=== PATIENT | female | born 1950 | race Caucasian/White ===

== ENCOUNTER 2021-01-24 17:24 | Emergency (ER) | payer MEDICARE, OTHER ==
[~2021-01-24] VITALS: Ht 167.6 cm; Wt 90.7 kg
[2021-01-24] MEDS ORDERED: TETANUS-DIPTH-ACEL PERTUSSIS 0.5ML SYR Tdap IM ONE (22:15)
[2021-01-24] MEDS ORDERED: cefTRIAXone SOD 1,000 MG VL IM ONE (22:15)
[2021-01-24 23:50] VITALS: BP 128/63
[2021-01-25] MEDS ORDERED: BACITRACIN TOP OINT 1 UD PKG TOP ONE
== END 2021-01-24 23:57 | disposition home or self-care (01) ==
LOC: ER 17:27
DX: S61.216A Laceration without foreign body of right little finger without damage to nail, initial encounter (principal); I10 Essential (primary) hypertension; Z88.2 Allergy status to sulfonamides; W54.0XXA Bitten by dog, initial encounter; Y93.89 Activity, other specified; Y92.89 Other specified places as the place of occurrence of the external cause; Y99.8 Other external cause status
CPT/HCPCS: 12001; 73140; 90471; 90715; 96372; 99284; J0696

== ENCOUNTER 2024-10-20 12:12 | Emergency (ER) | payer MEDICARE, OTHER ==
[~2024-10-20] VITALS: Ht 167.6 cm; Wt 86.6 kg
--- NOTE | 2024-10-20 13:30 | DVH ---
EXAM: CT HEAD WITHOUT CONTRAST INDICATION: trauma TECHNIQUE: CT of the head without intravenous contrast. Coronal and sagittal reformatted images are s ubmitted. Radiation Dose : 1. Head: CT Dose: CTDI volume is 18.9 mGy. Dose-length product is 502.3 mGy*cm The dose indicators for CT are the volume Computed Tomography (CT) Dose Index (CTDIvol) and the Dose Length Product (DLP), and are measured in units of mGy and mGy-cm, respectively. These indicators are not patient dose, but values generated from the CT scanner acquisition factors. The report includes radiation exposure data for exposures received during this examination. All CT scans at this medical facility are performed using dose modulation techniques as appropriate to a performed exam including the following: Automated exposure control was utilized; adjustment of the MA and/or KV according to patient size; and use of iterative reconstruction technique. COMPARISON: None FINDINGS: There is no evidence of acute intracranial hemorrhage, extra-axial collection, mass effect, midline s hift, herniation or hydrocephalus. The ventricles, sulci and cisterns are age appropriate. The tapia-white differentiation is intact. There is mucosal thickening in the right maxillary sinus mastoid air cells are clear. No depressed calvarial fracture. The surrounding soft tissues are unremarkable. IMPRESSION: 1. No evidence of acute intracranial abnormality.
[2024-10-20 13:37] LABS: Basophils # (auto) 0.1 10 ^3/uL (0-0.2); Basophils % (auto) 1.1 % (0.0-2.0); Eosinophils # (auto) 0.4 10 ^3/uL (0-0.8); Eosinophils % (auto) 6.6 % (0.0-7.0); Hematocrit 40.6 % (36.0-46.0); Hemoglobin 13.7 g/dL (12.2-16.2); Lymphocytes # (auto) 1.5 10 ^3/uL (0.4-5.4); Mean Corpuscular Hgb Conc. 33.9 g/dL (32.0-36.0); Mean Corpuscular Volume 97.5 fL (80.0-100.0); Monocytes # (auto) 0.7 10 ^3/uL (0-1.3); Monocytes % (auto) 11.7 % (0.0-12.0); Neutrophils # (auto) 3.1 10 ^3/uL (1.6-8.6); Neutrophils % (auto) 54.6 % (37.0-80.0); Nucleated Red Blood Cells % 0.1 %; Platelet Count (auto) 156 10^3/uL (140-450); Red Blood Cells 4.16 10^6/uL (4.0-5.20); White Blood Cell 5.7 10^3/uL (4.4-10.8)
[2024-10-20 13:48] LABS: Chloride 107 mmol/L (98-107); Sodium 142 mmol/L (136-145)
--- NOTE | 2024-10-20 13:48 | DVH ---
EXAM: CT CERVICAL WITHOUT CONTRAST INDICATION: trauma EXAM DATE: 10/20/2024 01:04 PM COMPARISON: None TECHNIQUE: Multiple axial CT images of the cervical spine were obtained using bone algorithm. Sagitta l and coronal reformatting was done. Bone and soft tissue windows were reviewed. Radiation Dose Information: CT Dose: CTDI volume is 18.8 mGy. Dose-length product is 502.3 mGy*cm FINDINGS: The cervical alignment is intact. There is reversal of the cervical lordosis. No acute cervical spine fracture is identified. The vertebral body heights are intact. No suspicious osseous lesions are luann ntified. Multilevel intervertebral disc space narrowing. No significant spinal stenosis. No significant neural foraminal stenosis. There is no prevertebral soft tissue swelling. IMPRESSION: 1. No evidence of acute cervical spine fracture or traumatic malalignment. All CT scans at this medical facility are performed using dose modulation techniques as appropriate t o a performed exam including the following: Automated exposure control was utilized; adjustment of th e MA and/or KV according to patient size; and use of iterative reconstruction technique.
[2024-10-20 13:49] LABS: Anion Gap 7 (5-15); Carbon Dioxide 28 mmol/L (20-31)
[2024-10-20 13:50] LABS: Calcium 9.3 mg/dL (8.7-10.4)
--- NOTE | 2024-10-20 13:52 | DVH ---
XY L HAND 3V XRAY, INDICATION: trauma TECHNICAL DATA: Frontal, oblique and lateral views were obtained of the left hand. COMPARISON: None FINDINGS: No fracture is identified. Joint spaces are maintained. Alignment is anatomic. Soft tissues are withi n normal limits. IMPRESSION: No acute fracture or dislocation of the left hand.
--- NOTE | 2024-10-20 13:53 | DVH ---
XY L WRIST 3+ VIEW XRAY, INDICATION: trauma TECHNICAL DATA: Frontal , oblique, and lateral views were obtained of the left wrist. COMPARISON: None FINDINGS: Cortical irregularity of the 5th metacarpal head could be from old trauma. Joint spaces are maintaine d. Alignment is anatomic. Ulnar variance is positive. Soft tissues are within normal limits. IMPRESSION: Cortical irregularity of the 5th metacarpal head could be from old trauma.
[2024-10-20 13:54] LABS: BUN/Creatinine Ratio 19.3 (10.0-20.0); Blood Urea Nitrogen 17 mg/dL (9-23); Glucose 95 mg/dL (74-106)
[2024-10-20] MEDS: ONDANSETRON ODT 4 MG TAB PO ONE (13:56)
[2024-10-20] MEDS: HYDROcodone-ACET 5/325MG TAB PO ONE (13:56)
[2024-10-20 13:57] VITALS: PULSE 83; RESP 17; O2SAT 95
[2024-10-20 15:28] VITALS: TEMP 97.7
[2024-10-20] MEDS ORDERED: BAC09TP TOP (15:37)
[2024-10-20] MEDS ORDERED: HYDR-4902 PO (15:37)
--- NOTE | 2024-10-20 15:38 | ED.PDOC ---
Musculoskeletal HPI Comments 74y F who presents to the ED for chief complaint of mechanical fall. Pt states she had mechanical fall earlier this afternoon and states she tripped over a rug and fell. Pt states she hit her L side of head on stone and fell on her L hand to help break her fall. Pt denies any associated loss of consciousness, n/v, dizziness, vision changes or focal weakness. She was seen at Urgent Care and referred to ER. Pt now in the ED, has noted bruise by the L side of forehead but otherwise is a&0x4 and able to answer all questions and no noted changes in gait, vision, or speech are noted. Pt notes she is having pain on the left side of her face, and in her left hand 5th finger MCP area and left wrist ulnar area. Pt otherwise denies headache, dizziness, nausea,vomiting, chest pain or shortness of breath or any associated symptoms. Pt otherwise denies any other symptoms at this time. Chief Complaint: Fall Injury Time Seen by MD: 15:36 Primary Care Provider: JULIA Worley Notes: Medications, Allergies Allergies: Coded Allergies: Kiwi Extract (Verified Allergy, Unknown, 01/24/21) Sulfa Antibiotics (Verified Allergy, Unknown, 01/24/21) Uncoded Allergies: CLARITAN (Allergy, Unknown, 01/24/21) Home Meds Active Scripts Bacitracin (Bacitracin Oint) 1 Applic Ap, 1 APPLIC TOP TID, #30 GM apply to facial abrasion/laceration tid until healed Prov:JUAN MCCARTHY MD 10/20/24 Hydrocodone-Acetaminophen (Hydrocodone Bitartrate/AC 5-325 mg) 1 Tab Tab, 1 TAB PO Q6HP PRN, #20 TAB prn pain Prov:JUAN MCCARTHY MD 10/20/24 Information Source: Patient, Relative Mode of Arrival: Ambulatory Brought in by: pt son Past Medical History PAST MEDICAL HISTORY: AFIB, HTN, Thyroid Surgical History: Thyroidectomy FINANCE BROKER History: No Pertinent FINANCE BROKER History Family History Family History: Reviewed,noncontributory to illness Social History Smoker: Non-Smoker Alcohol: Denies ETOH Use Drugs: Denies Drug Use Lives In: Home Constitutional: denies: chills, diaphoresis, fatigue, fever, malaise, sweats, weakness, others EENTM: denies: blurred vision, double vision, ear bleeding, ear discharge, ear drainage, ear pain, ear ringing, eye pain, eye redness, hearing loss, mouth pain, mouth swelling, nasal discharge, nose bleeding, nose congestion, nose pain, photophobia, tearing, throat pain, throat swelling, voice changes, others Respiratory: denies: cough, hemoptysis, orthopnea, SOB at rest, shortness of breath, SOB with excertion, stridor, wheezing, others Cardiovascular: denies: chest pain, dizzy spells, diaphoresis, Dyspnea on exertion, edema, irregular heart beat, left arm pain, lightheadedness, palpitations, PND, syncope, others Gastrointestinal: denies: abdomen distended, abdominal pain, blood streaked bowels, constipated, diarrhea, dysphagia, difficulty swallowing, hematemesis, melena, nausea, poor appetite, poor fluid intake, rectal bleeding, rectal pain, vomiting, others Genitourinary: denies: abnormal vagina bleeding, burning, dyspareunia, dysuria, flank pain, frequency, hematuria, incontinence, pain, , vagina discharge, urgency, others Neurological: denies: dizziness, fainting, headache, left sided numbness, left sided weakness, numbness, paresthesia, pre-existing deficit, right sided numbness, right sided weakness, seizure, speech problems, tingling, tremors, weakness, others Musculoskeletal: reports: joint pain (L hand); denies: back pain, gout, joint swelling, muscle pain, muscle stiffness, neck pain, others Integumetry: reports: bruises (L forehead, L hand); denies: change in color, change in hair/nails, dryness, laceration, lesions, lumps, rash, wounds, others Allergic/Immunocompromised: denies: Difficulty Healing, Frequent Infections, Hives, Itching, others Hematologic/Lymphatic: denies: anemia, blood clots, easy bleeding, easy bruis ing, swollen glands, others Endocrine: denies: excessive hunger, excessive sweating, excessive thirst, exc essive urination, flushing, intolerance to cold, intolerance to heat, unexplained weight gain, unexplained weight loss, others Psychiatric: denies: anxiety, bipolar disorder, depression, hopeless, panic disorder, schizophrenia, sleepless, suicidal, others All Other Systems: Reviewed and Negative Physical Exam General Appearance: No Apparent Distress HEENT: PERRL/EOMI, Other (Left eyebrow and lateral periorbital soft tissue tenderness, swelling, mild bruising and superficial subcentimeter laceration. No bleeding.) Neck: Full Range of Motion, Normal Inspection, Supple, Tender Lateral (Left paraspinal soft tissue tenderness) Respiratory: Chest Non-Tender, Lungs Clear, No Accessory Muscle Use, No Respiratory Distress, Normal Breath Sounds Cardiovascular: No Edema, No JVD, Regular Rate/Rhythm Breast Exam: Deferred Gastrointestinal: Non Tender, Soft Genitalia: Deferred Pelvic: Deferred Rectal: Deferred Extremities: Normal range of motion, No pedal edema, Swelling, Tender, Other (Left hand soft tissue tenderness and swelling overlying the distal 5th metacarpal area, left wrist soft tissue tenderness and swelling of the ulnar aspect.) Neurologic: Alert (Oriented x4), Headache, Normal Affect, Normal Mood, Other (Ambulatory without difficulty. No gross focal deficit.) Cerebellar Function: NOT DONE Reflexes: NOT DONE Skin: Bruises (Left face), Dry, Normal Color, Warm Lymphatic: NOT DONE Was a procedure done? Was a procedure done?: No Differential Diagnosis EXT Differential Diagnosis: Fracture, Sprain, Dislocation, Contusion, Strain, Other (arrhythmia, MO, ICH) X-Ray, Labs, Meds, VS Vital Signs Date Time Temp Pulse Resp B/P (MAP) Pulse Ox O2 Delivery O2 Flow Rate FiO2 10/20/24 15:28 97.7 82 16 143/70 (94) 94 97.7 10/20/24 13:57 83 17 95 Room Air* 0 21 10/20/24 13:57 97.6 83 17 148/90 (109) 95 97.6 10/20/24 12:33 97.3 76 16 139/89 (106) 95 Lab Test 10/20/24 14:52 10/20/24 13:08 Range/Units Troponin I High Sensitivity < 3 L < 3 L </=34 ng/L White Blood Count 5.7 4.4-10.8 10^3/uL Red Blood Count 4.16 4.0-5.20 10^6/uL Hemoglobin 13.7 12.2-16.2 g/dL Hematocrit 40.6 36.0-46.0 % Mean Corpuscular Volume 97.5 80.0-100.0 fL Mean Corpuscular Hemoglobin 33.0 H 28.0-32.0 pg Mean Corpuscular Hemoglobin Concent 33.9 32.0-36.0 g/dL Red Cell Distribution Width 14.0 11.8-14.3 % Platelet Count 156 140-450 10^3/uL Mean Platelet Volume 9.8 6.9-10.8 fL Neutrophils (%) (Auto) 54.6 37.0-80.0 % Lymphocytes (%) (Auto) 26.0 10.0-50.0 % Monocytes (%) (Auto) 11.7 0.0-12.0 % Eosinophils (%) (Auto) 6.6 0.0-7.0 % Basophils (%) (Auto) 1.1 0.0-2.0 % Neutrophils # (Auto) 3.1 1.6-8.6 10 ^3/uL Lymphocytes # (Auto) 1.5 0.4-5.4 10 ^3/uL Monocytes # (Auto) 0.7 0-1.3 10 ^3/uL Eosinophils # (Auto) 0.4 0-0.8 10 ^3/uL Basophils # (Auto) 0.1 0-0.2 10 ^3/uL Nucleated Red Blood Cells 0.1 % Sodium Level 142 136-145 mmol/L Potassium Level 4.0 3.5-5.1 mmol/L Chloride Level 107 98-107 mmol/L Carbon Dioxide Level 28 20-31 mmol/L Anion Gap 7 5-15 Blood Urea Nitrogen 17 9-23 mg/dL Creatinine 0.88 0.550-1.02 mg/dL Glomerular Filtration Rate Calc 68 >90 mL/min BUN/Creatinine Ratio 19.3 10.0-20.0 Serum Glucose 95 74-106 mg/dL Calcium Level 9.3 8.7-10.4 mg/dL B-Type Natriuretic Peptide 38.72 0-100 pg/mL Current Medications Medications (Trade) Dose Ordered Sig/Ronna Route Start Time Stop Time Status Last Admin Diphtheria/ Tetanus/Acell Pertussis (Boostrix T-Dap) 0.5 ml ONCE ONCE IM 10/20/24 15:45 10/20/24 15:56 DC 10/20/24 16:[address] [address] Ph: [phone] DIAGNOSTIC IMAGING Diagnostic Imaging Report : [id number] Signed PATIENT: SAMUEL PARKER ACCT: [id number] UNIT: [id number] : 1950 LOC: ER ROOM / BED: / AGE / SEX: 74 / F ADM STATUS: REG ER SERVICE 1253 ORDERING PHYSICIAN: JUAN MCCARTHY MD PROCEDURE(s): LWRI - L WRIST 3+ VIEW XRAY REASON: trauma ORDER NUMBER(s): [id number], ACCESSION NUMBER(s): [id number] XY L WRIST 3+ VIEW XRAY, INDICATION: trauma TECHNICAL DATA: Frontal , oblique, and lateral views were obtained of the left wrist. COMPARISON: None FINDINGS: Cortical irregularity of the 5th metacarpal head could be from old trauma. Joint spaces are maintained. Alignment is anatomic. Ulnar variance is positive. Soft tissues are within normal limits. IMPRESSION: Cortical irregularity of the 5th metacarpal head could be from old trauma. ATED BY: JEFF BLAKE MD DICTATED DATE/TIME: 10/20/24 1350 SIGNED BY: JEFF BLAKE MD SIGNED DATE/TIME: 10/20/24 1350 CC: [place] [id number] Ph: [phone] DIAGNOSTIC IMAGING Diagnostic Imaging Report : [id number] Signed PATIENT: SAMUEL PARKER ACCT: [id number] UNIT: [id number] : 1950 LOC: ER ROOM / BED: / AGE / SEX: 74 / F ADM STATUS: REG ER SERVICE 1258 ORDERING PHYSICIAN: JUAN MCCARTHY MD PROCEDURE(s): HWOCT - HEAD WITHOUT CONTRAST REASON: trauma ORDER NUMBER(s): [id number], ACCESSION NUMBER(s): [id number] EXAM: CT HEAD WITHOUT CONTRAST INDICATION: trauma TECHNIQUE: CT of the head without intravenous contrast. Coronal and sagittal reformatted images are submitted. Radiation Dose : 1. Head: CT Dose: CTDI volume is 18.9 mGy. Dose-length product is 502.3 mGy*cm The dose indicators for CT are the volume Computed Tomography (CT) Dose Index (CTDIvol) and the Dose Length Product (DLP), and are measured in units of mGy and mGy-cm, respectively. These indicators are not patient dose, but values generated from the CT scanner acquisition factors. The report includes radiation exposure data for exposures received during this examination. All CT scans at this medical facility are performed using dose modulation techniques as appropriate to a performed exam including the following: Automated exposure control was utilized; adjustment of the MA and/or KV according to patient size; and use of iterative reconstruction technique. COMPARISON: None FINDINGS: There is no evidence of acute intracranial hemorrhage, extra-axial collection, mass effect, midline shift, herniation or hydrocephalus. The ventricles, sulci and cisterns are age appropriate. The tapia-white differentiation is intact. There is mucosal thickening in the right maxillary sinus mastoid air cells are clear. No depressed calvarial fracture. The surrounding soft tissues are unremarkable. IMPRESSION: 1. No evidence of acute intracranial abnormality. ATED BY: FLORENCE KRAUSE MD DICTATED DATE/TIME: 10/20/241326 SIGNED BY: FLORENCE KRAUSE MD SIGNED DATE/TIME: 10/20/241326 CC: [place] [id number] Ph: [phone] DIAGNOSTIC IMAGING Diagnostic Imaging Report : [id number] Signed PATIENT: SAMUEL PARKER ACCT: [id number] UNIT: [id number] : 1950 LOC: ER ROOM / BED: / AGE / SEX: 74 / F ADM STATUS: REG ER SERVICE 1255 ORDERING PHYSICIAN: JUAN MCCARTHY MD PROCEDURE(s): LHAN - L HAND 3V XRAY REASON: trauma ORDER NUMBER(s): [id number], ACCESSION NUMBER(s): [id number] XY L HAND 3V XRAY, INDICATION: trauma TECHNICAL DATA: Frontal, oblique and lateral views were obtained of the left maldonado nd. COMPARISON: None FINDINGS: No fracture is identified. Joint spaces are maintained. Alignment is anatomic. Soft tissues are within normal limits. IMPRESSION: No acute fracture or dislocation of the left hand. ATED BY: JEFF BLAKE MD DICTATED DATE/TIME: 10/20/241348 SIGNED BY: JEFF BLAKE MD SIGNED DATE/TIME: 10/20/241348 CC: [facility] [id number] [place] [address] Ph: [phone] DIAGNOSTIC IMAGING Diagnostic Imaging Report : [id number] Signed PATIENT: SAMUEL PARKER ACCT: [id number] UNIT: [id number] : 1950 LOC: ER ROOM / BED: / AGE / SEX: 74 / F ADM STATUS: REG ER SERVICE 54 ORDERING PHYSICIAN: JUAN MCCARTHY MD PROCEDURE(s): CS2 - CERVICAL WITHOUT CONTRAST REASON: trauma ORDER NUMBER(s): [id number], ACCESSION NUMBER(s): [id number] EXAM: CT CERVICAL WITHOUT CONTRAST INDICATION: trauma EXAM DATE: 10/20/2024 01:04 PM COMPARISON: None TECHNIQUE: Multiple axial CT images of the cervical spine were obtained using bone algorithm. Sagittal and coronal reformatting was done. Bone and soft tissue windows were reviewed. Radiation Dose Information: CT Dose: CTDI volume is 18.8 mGy. Dose-length product is 502.3 mGy*cm FINDINGS: The cervical alignment is intact. There is reversal of the cervical lordosis. No acute cervical spine fracture is identified. The vertebral body heights are intact. No suspicious osseous lesions are identified. Multilevel intervertebral disc space narrowing. No significant spinal stenosis. No significant neural foraminal stenosis. There is no prevertebral soft tissue swelling. IMPRESSION: 1. No evidence of acute cervical spine fracture or traumatic malalignment. All CT scans at this medical facility are performed using dose modulation techniques as appropriate to a performed exam including the following: Automated exposure control was utilized; adjustment of the MA and/or KV according to patient size; and use of iterative reconstruction technique. ATED BY: FLORENCE KRAUSE MD DICTATED DATE/TIME: 10/20/241344 SIGNED BY: FLORENCE KRAUSE MD SIGNED DATE/TIME: 03/09/25 1345 CC: X-Ray, Labs, Meds, VS Comment 74 yo F with h/o htn, afib on xarelto, thyroid dz, bib family, referred by for head injury and LUE pain s/p [facility] trip & fall VS remarkable for BP 148/90 Exam remarkable for L facial bruise/abrasion/lac/STS, L hand bruise/STS/tenderness Sinus rhythm, rate 76, no ectopy. CT head IMPRESSION: 1. No evidence of acute intracranial abnormality. CT C-spine IMPRESSION: 1. No evidence of acute cervical spine fracture or traumatic malalignment. Left wrist x-ray IMPRESSION: Cortical irregularity of the 5th metacarpal head could be from old trauma. Left hand x-ray IMPRESSION: No acute fracture or dislocation of the left hand. CBC, basic metabolic panel, BNP and 2 serial troponins unremarkable for any abnormality of acute significance Patient treated with the following in the ED: [place] 5/325 mg p.o., Zofran ODT 4 mg p.o., Tdap 0.5 mL IM. The left hand/wrist was placed in an ulnar gutter splint. The left upper extremity was neurovascularly intact after the splint was applied. Please see procedure note for details. The left facial superficial laceration and abrasions were cleansed with normal saline/Betadine, then a Steri-Strip was applied to the superficial laceration. On re-evaluation, patient states pain has improved. Vitals were stable. She is neurologically intact and ambulatory. Patient appears stable for discharge with close outpatient follow-up with her primary physician. Patient states she has never fractured her left hand or had any significant injury to that area. Cortical irregularity is unlikely to be from old trauma, and more likely to be from the current fall. Patient will also be referred to ortho/hand for evaluation of her probable acute 5th metacarpal head fracture. Rx [place], bacitracin Time of 1ST Reevaluation: 16:05 Reevaluation 1ST: Unchanged Time of 2ND Reevaluation: 15:58 Reevaluation 2ND: Improved Patient Education/Counseling: Diagnosis, Treatment Family Education/Counseling: Diagnosis, Treatment Additional Information -Reviewed patient's previous visit(s): - The following tests were ordered, and results were reviewed by me: trop x2, cbc, bnp, ua, bmp, ct head w/o contrast, cervical w/o contrast, L hand x-ray, - I reviewed and agreed with the following test results read by other provider: radiologist - I discussed treatments and results with medical personnel and: patient and pt son Comprehensive systems review obtained and negative except for what is stated in the HPI. Departure 1 Departure Time of Disposition: 15:58 Impression: Primary Impression: Fracture of fifth metacarpal bone of left hand Qualified Codes: S62.397A - Other fracture of fifth metacarpal bone, left hand, initial encounter for closed fracture Additional Impressions: Facial contusion Qualified Codes: S00.83XA - Contusion of other part of head, initial encounter Facial laceration Qualified Codes: S01.81XA - Laceration without foreign body of other part of head, initial encounter Disposition: HOME / SELF CARE / HOMELESS Condition: Stable Additional Instructions: Your blood tests, including screening test for heart attack and heart failure were unremarkable. Your head CT was unremarkable. Your cervical spinal CT was unremarkable. Your left hand/wrist x-rays showed a possible fracture of the 5th metacarpal head. Please see the report below. Follow-up with your primary doctor in 1-2 days for recheck and referral to a hand specialist. Alternatively, follow-up at [facility], Dr. Geovanna Schofield for further evaluation of your hand fracture. [phone] [place] [address] Ph: [phone] DIAGNOSTIC IMAGING Diagnostic Imaging Report : [id number] Signed PATIENT: SAMUEL PARKER ACCT: [id number] UNIT: [id number] : 1950 LOC: ER ROOM / BED: / AGE / SEX: 74 / F ADM STATUS: REG ER SERVICE 9055 ORDERING PHYSICIAN: JUAN MCCARTHY MD PROCEDURE(s): LWRI - L WRIST 3+ VIEW XRAY REASON: trauma ORDER NUMBER(s): [id number], ACCESSION NUMBER(s): [id number] XY L WRIST 3+ VIEW XRAY, INDICATION: trauma TECHNICAL DATA: Frontal , oblique, and lateral views were obtained of the left wrist. COMPARISON: None FINDINGS: Cortical irregularity of the 5th metacarpal head could be from old trauma. Joint spaces are maintained. Alignment is anatomic. Ulnar variance is positive. Soft tissues are within normal limits. IMPRESSION: Cortical irregularity of the 5th metacarpal head could be from old trauma. ATED BY: JEFF BLAKE MD DICTATED DATE/TIME: 10/20/24 1350 e-Prescriptions Bacitracin (Bacitracin Oint) 1 Applic Ap 1 APPLIC TOP TID, #30 GM apply to facial abrasion/laceration tid until healed Prov: JUAN MCCARTHY MD 10/20/24 Hydrocodone-Acetaminophen (Hydrocodone Bitartrate/AC 5-325 mg) 1 Tab Tab 1 TAB PO Q6HP PRN, #20 TAB prn pain Prov: JUAN MCCARTHY MD 10/20/24 Discharged With: Relative Critical Care Note Critical Care Time?: No Stability Stability form required: No Heart Score Heart Score: Heart Score Response (Comments) Value History N/A 0 EKG N/A 0 Age N/A 0 Risk Factors N/A 0 Troponin N/A 0 Total 0 I personally scribed for JUAN MCCARTHY MD ([email or web address]) on 10/20/24 at 15:38. Electronically submitted by Carol Linton ([facility] I personally scribed for JUAN MCCARTHY MD ([email or web address]) on 10/20/24 at 16:31. Electronically submitted by Carlo Linton ([facility] JUAN MCCARTHY MD Oct 20, 2024 15:38
[2024-10-20] MEDS: TETANUS-DIPTH-ACEL PERTUSSIS 0.5ML SYR Tdap IM ONE (16:26)
[2024-10-20 16:34] VITALS: BP 123/77; RESP 18; O2SAT 92
[2024-10-20 16:43] VITALS: PULSE 60
--- NOTE | 2024-10-20 16:44 | ECG ---
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
== END 2024-10-20 16:55 | disposition home or self-care (01) ==
LOC: ER 12:12
DX: S62.397A Other fracture of fifth metacarpal bone, left hand, initial encounter for closed fracture (principal); S01.81XA Laceration without foreign body of other part of head, initial encounter; I10 Essential (primary) hypertension; I48.91 Unspecified atrial fibrillation; E03.9 Hypothyroidism, unspecified; R06.02 Shortness of breath; Z23 Encounter for immunization; Z90.89 Acquired absence of other organs; Z88.2 Allergy status to sulfonamides; W01.0XXA Fall on same level from slipping, tripping and stumbling without subsequent striking against object, initial encounter; Y93.89 Activity, other specified; Y92.89 Other specified places as the place of occurrence of the external cause; Y99.8 Other external cause status
CPT/HCPCS: 29125; 36415; 70450; 72125; 73110; 73130; 80048; 83880; 84484; 85025; 90471; 90715; 93005